=== PATIENT | female | born 1960 | race Caucasian/White ===

== ENCOUNTER 2018-12-20 16:47 | Emergency (ER) | payer OTHER ==
--- NOTE | 2018-12-20 17:42 | ER ---
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 Denies trauma or injury, reports seeing a massage therapist and chiropractor for pain management but nothing is helping. Transition of care: patient was not received from another setting of care. Onset of symptoms was December 20, 2018. Risk Assessment: Do you want to hurt yourself or someone else? Patient reports no desire to harm self or others. Initial Sepsis Screen: Does the patient meet any 2 criteria? No. Patient's initial sepsis screen is negative. Does the patient have a suspected source of infection? No. Patient's initial sepsis screen is negative. Care prior to arrival: None. 17:05 Method Of Arrival: Ambulatory sg 17:05 Acuity: NOE 4 sg Historical: - Allergies: 17:08 No Known Allergies; sg - PMHx: 17:08 Borderline Diabetes; Borderline Hypertension; sg - PSHx: 17:08 D/C; sg - Immunization history:: Adult Immunizations up to date. - Social history:: Smoking status: Patient/guardian denies using tobacco. - Ebola Screening: : Patient negative for fever greater than or equal to 101.5 degrees Fahrenheit, and additional compatible Ebola Virus Disease symptoms Patient denies exposure to infectious person Patient denies travel to an Ebola-affected area in the 21 days before illness onset No symptoms or risks identified at this time. Screenin:37 Abuse screen: Denies threats or abuse. Denies injuries from another. Nutritional aj screening: No deficits noted. Tuberculosis screening: No symptoms or risk factors identified. Fall Risk None identified. Assessment: 17:37 General: Appears in no apparent distress. comfortable, Behavior is calm, cooperative, aj appropriate for age. Pain: Complains of pain in coccyx, left lower back, left gluteus tarik and left gluteal fold. Neuro: Level of Consciousness is awake, alert, obeys commands, Oriented to person, place, time, situation, Appropriate for age. Respiratory: Airway is patent Trachea midline Respiratory effort is even, unlabored, Respiratory pattern is regular, symmetrical. Derm: Skin is intact, is healthy with good turgor, Skin is pink, warm \T\ dry. normal. Musculoskeletal: Reports pain in coccyx, left lower back, left gluteus tarik and left gluteal fold. Vital Signs: 17:06 Pulse 72; Resp 18; Temp 97.6; Pulse Ox 99% on R/A; Pain 6/10; sg 17:10 BP 146 / 64; em1 ED Course: 16:50 Patient arrived in ED. as 17:01 Keiry Fofana, RN is Primary Nurse. aj 17:06 Triage completed. sg 17:06 Arm band placed on. sg 17:37 Patient has correct armband on for positive identification. aj 17:37 No provider procedures requiring assistance completed. aj 17:40 Pranav Booth PA is PHCP. jr8 17:40 Adam Brock MD is Attending Physician. jr8 17:46 Patient did not have IV access during this emergency room visit. aj Administered Medications: No medications were administered Outcome: 17:41 Discharge ordered by . jr8 17:46 Discharged to home ambulatory. aj 17:46 Condition: good 17:46 Discharge instructions given to patient, Instructed on discharge instructions, follow up and referral plans. medication usage, Demonstrated understanding of instructions, follow-up care, medications, Prescriptions given X 3. 17:46 Patient left the ED. aj Signatures: Phill Mtz, RN Keiry Bains RN Mahnaz Chin Eric em1 Pranav Booth PA PA jr8
--- NOTE | 2018-12-20 17:42 | EDPHYS ---
Physician Documentation [facility] Name: Dixie Gardner Age: 58 yrs Sex: Female : 1960 Arrival Date: 12/20/2018 Time: 16:50 Bed 25 Private MD: ED Physician Adam Brock HPI: 12/20 17:42 This 58 yrs old Female presents to ER via Ambulatory with complaints of Back jr8 Pain, Thigh Pain. 17:42 The patient presents with pain that is acute. The symptoms are located in the low back. jr8 Onset: The symptoms/episode began/occurred acutely, 2 day(s) ago. The pain radiates to the left leg. Associated signs and symptoms: The patient has no apparent associated signs or symptoms. The problem was sustained when bending over, when lifting. Modifying factors: The patient symptoms are alleviated by nothing, the patient symptoms are aggravated by any movement. Severity of symptoms: At their worst the symptoms were moderate, in the emergency department the symptoms are unchanged. The patient has not experienced similar symptoms in the past. The patient has not recently seen a physician. Historical: - Allergies: 17:08 No Known Allergies; sg - PMHx: 17:08 Borderline Diabetes; Borderline Hypertension; sg - PSHx: 17:08 D/C; sg - Immunization history:: Adult Immunizations up to date. - Social history:: Smoking status: Patient/guardian denies using tobacco. - Ebola Screening: : Patient negative for fever greater than or equal to 101.5 degrees Fahrenheit, and additional compatible Ebola Virus Disease symptoms Patient denies exposure to infectious person Patient denies travel to an Ebola-affected area in the 21 days before illness onset No symptoms or risks identified at this time. ROS: 17:42 Eyes: Negative for injury, pain, redness, and discharge, ENT: Negative for injury, jr8 pain, and discharge, Neck: Negative for injury, pain, and swelling, Respiratory: Negative for shortness of breath, cough, wheezing, and pleuritic chest pain, Abdomen/GI: Negative for abdominal pain, nausea, vomiting, diarrhea, and constipation, MS/Extremity: Negative for injury and deformity, Skin: Negative for injury, rash, and discoloration, Neuro: Negative for headache, weakness, numbness, tingling, and seizure. 17:42 Back: Positive for pain at rest, pain with movement, radiated pain, of the left low back. Exam: 17:42 Eyes: Pupils equal round and reactive to light, extra-ocular motions intact. Lids and jr8 lashes normal. Conjunctiva and sclera are non-icteric and not injected. Cornea within normal limits. Periorbital areas with no swelling, redness, or edema. ENT: Nares patent. No nasal discharge, no septal abnormalities noted. Tympanic membranes are normal and external auditory canals are clear. Oropharynx with no redness, swelling, or masses, exudates, or evidence of obstruction, uvula midline. Mucous membranes moist. Neck: Trachea midline, no thyromegaly or masses palpated, and no cervical lymphadenopathy. Supple, full range of motion without nuchal rigidity, or vertebral point tenderness. No Meningismus. Cardiovascular: Regular rate and rhythm with a normal S1 and S2. No gallops, murmurs, or rubs. Normal PMI, no JVD. No pulse deficits. Respiratory: Lungs have equal breath sounds bilaterally, clear to auscultation and percussion. No rales, rhonchi or wheezes noted. No increased work of breathing, no retractions or nasal flaring. Abdomen/GI: Soft, non-tender, with normal bowel sounds. No distension or tympany. No guarding or rebound. No evidence of tenderness throughout. Skin: Warm, dry with normal turgor. Normal color with no rashes, no lesions, and no evidence of cellulitis. MS/ Extremity: Pulses equal, no cyanosis. Neurovascular intact. Full, normal range of motion. Neuro: Awake and alert, GCS 15, oriented to person, place, time, and situation. Cranial nerves II-XII grossly intact. Motor strength 5/5 in all extremities. Sensory grossly intact. Cerebellar exam normal. Normal gait. 17:42 Back: pain, that is moderate, of the left low back, ROM is painful, normal spinal alignment noted, CVA tenderness, is absent, vertebral tenderness, is not appreciated, muscle spasm, is appreciated in the left low back. Vital Signs: 17:06 Pulse 72; Resp 18; Temp 97.6; Pulse Ox 99% on R/A; Pain 6/10; sg 17:10 BP 146 / 64; em1 MDM: 17:40 Patient medically screened. jr8 17:40 Data reviewed: vital signs, nurses notes, and as a result, I will discharge patient. jr8 Data interpreted: Pulse oximetry: on room air is 99 %. Interpretation: normal. Counseling: I had a detailed discussion with the patient and/or guardian regarding: the historical points, exam findings, and any diagnostic results supporting the discharge/admit diagnosis, the need for outpatient follow up, a family practitioner, to return to the emergency department if symptoms worsen or persist or if there are any questions or concerns that arise at home. Administered Medications: No medications were administered Disposition: 12/21 09:42 Co-signature as Attending Physician, Adam Brock MD I agree with the assessment and de plan of care. Disposition: 12/20/18 17:41 Discharged to Home. Impression: Low back pain, Radiculopathy, lumbar region. - Condition is Stable. - Discharge Instructions: Back Pain, Adult, Musculoskeletal Pain, Heat Therapy. - Prescriptions for Mobic 7.5 mg Oral Tablet - take 1 tablet by ORAL route once daily take with food; 20 tablet. Prednisone 20 mg Oral Tablet - take 1 tablet by ORAL route once daily for 5 days; 5 tablet. Skelaxin 800 mg Oral Tablet - take 1 tablet by ORAL route every 8 hours As needed; 30 tablet. - Medication Reconciliation Form, Thank You Letter, Antibiotic Education, Prescription Opioid Use form. - Follow up: Private Physician; When: 1 week; Reason: Recheck today's complaints, Continuance of care, Re-evaluation by your physician. - Problem is new. - Symptoms have improved. Signatures: Phill Mtz RN RN sg Myers, Amanda, RN RN aj Roszak, Josh, PA PA jr8 Adam Brock MD MD de Corrections: (The following items were deleted from the chart) 12/20 17:46 17:41 12/20/2018 17:41 Discharged to Home. Impression: Low back pain; Radiculopathy, aj lumbar region. Condition is Stable. Forms are Medication Reconciliation Form, Thank You Letter, Antibiotic Education, Prescription Opioid Use. Follow up: Private Physician; When: 1 week; Reason: Recheck today's complaints, Continuance of care, Re-evaluation by your physician. Problem is new. Symptoms have improved. jr8
== END 2018-12-20 17:46 | disposition home or self-care (01) ==
LOC: ER 16:47
DX: M54.16 Radiculopathy, lumbar region (principal); R73.03 Prediabetes; R03.0 Elevated blood-pressure reading, without diagnosis of hypertension
CPT/HCPCS: 99282

== ENCOUNTER 2019-07-23 12:26 | Emergency (ER) | payer BC, OTHER ==
[2019-07-23] MEDS ORDERED: BUPIVACAINE 0.5% PF 10 ML VIAL ONE (13:12)
[2019-07-23] MEDS ORDERED: AMOX/K CLAV 875 MG TAB ONE (13:13)
--- NOTE | 2019-07-23 13:25 | ER ---
Nurse's Notes [facility] Name: Dixie Gardner Age: 59 yrs Sex: Female : 1960 Arrival Date: 07/23/2019 Time: 12:31 Bed 10 Private MD: Diagnosis: Cat Bite;Cellulitis of the Right 1st Phalanx Presentation: 07/23 12:45 Presenting complaint: Patient states: She was bit by her cat on Wednesday, now its aj1 swollen, hot to the touch and painful. Transition of care: patient was not received from another setting of care. Onset of symptoms was July 2019. Risk Assessment: Do you want to hurt yourself or someone else? Patient reports no desire to harm self or others. Initial Sepsis Screen: Does the patient meet any 2 criteria? No. Patient's initial sepsis screen is negative. Does the patient have a suspected source of infection? Yes: Skin breakdown/wound. Care prior to arrival: None. 12:45 Method Of Arrival: Ambulatory [facility] 12:45 Acuity: NOE 4 aj1 Triage Assessment: 12:47 Bite description: bite sustained to palmar aspect of distal phalanx of right thumb by a aj1 cat, animal information: vaccination(s) is current. General: Appears in no apparent distress. comfortable, Behavior is calm, cooperative, appropriate for age. Pain: Complains of pain in palmar aspect of distal phalanx of right thumb. Neuro: Level of Consciousness is awake, alert, obeys commands, Oriented to person, place, time, situation. Cardiovascular: Patient's skin is warm and dry. Respiratory: Airway is patent Respiratory effort is even, unlabored, Respiratory pattern is regular, symmetrical. Historical: - Allergies: 12:47 Cleocin; aj1 - Home Meds: 12:47 Hydrochlorothiazide Oral [Active]; Metformin Oral [Active]; "antidepressant" [Active]; aj1 - PMHx: 12:47 Borderline Diabetes; borderline hypertension; Rheumatic Fever; aj1 - Immunization history:: Flu vaccine is up to date. - Coronavirus screen:: The patient has NOT traveled to [place], [place], or [place] in the past 14 days. - Social history:: Smoking status: Patient/guardian denies using tobacco. - Ebola Screening: : Patient denies travel to an Ebola-affected area in the 21 days before illness onset. Vital Signs: 12:47 BP 143 / 74; Pulse 61; Resp 18; Temp 97.5; Pulse Ox 97% on R/A; Weight 99.79 kg (R); aj1 Height 5 ft. 3 in. (160.02 cm) (R); Pain 9/10; 12:47 Body Mass Index 38.97 (99.79 kg, 160.02 cm) [facility] ED Course: 12:31 Patient arrived in ED. mr 12:46 Triage completed. aj1 12:47 Arm band placed on Patient placed in an exam room. aj 12:53 John Becerra PA is PHCP. [facility] 12:53 Deon Harman MD is Attending Physician. [facility] 13:07 Bassem Blancas, RN is Primary Nurse. em 13:33 No provider procedures requiring assistance completed. Patient did not have IV access ss during this emergency room visit. Administered Medications: 13:12 Drug: Augmentin 875 mg Route: PO; em 13:32 Follow up: Response: No adverse reaction; Medication administered at discharge. ss 13:33 Not Given (Patient Refused): Marcaine (0.5 %) 10 ml 10 ml Infiltration once ss Outcome: 13:24 Discharge ordered by . [facility] 13:43 Discharged to home ambulatory. em 13:43 Condition: good 13:43 Discharge instructions given to patient, family, Instructed on discharge instructions, follow up and referral plans. medication usage, Demonstrated understanding of instructions, follow-up care, medications, Prescriptions given X 2. 13:43 Patient left the ED. em Signatures: Nereida Spence RN RN aj John Becerra PA PA Danielle Morales mr Bassem Blancas, RN RN em Joselin Tracey RN RN ss
--- NOTE | 2019-07-23 13:25 | EDPHYS ---
Physician Documentation [facility] Name: Dxiie Gardner Age: 59 yrs Sex: Female : 1960 Arrival Date: 07/23/2019 Time: 12:31 Bed 10 Private MD: ED Physician Deon Harman HPI: 07/23 13:19 This 59 yrs old Female presents to ER via Ambulatory with complaints of Cat jmm Bite, Infected finger. 13:19 by a cat. Onset: The symptoms/episode began/occurred acutely, 2 day(s) ago. Animal jmm information: Animal's vaccinations are up to date. Secondary to the bite the patient reports pain, swelling. Associated signs and symptoms: Pertinent positives: erythema at site, Pertinent negatives: fever. This is a 59 year old female with a hisory of htn that presents to the ED with complaints of right thumb pain with increased swelling and redness. Patient states her cat bit her thumb this past Wednesday. Denies fever or chills. . Historical: - Allergies: 12:47 Cleocin; aj1 - Home Meds: 12:47 Hydrochlorothiazide Oral [Active]; Metformin Oral [Active]; "antidepressant" [Active]; aj1 - PMHx: 12:47 Borderline Diabetes; borderline hypertension; Rheumatic Fever; aj1 - Immunization history:: Flu vaccine is up to date. - Coronavirus screen:: The patient has NOT traveled to [place], [place], or [place] in the past 14 days. - Social history:: Smoking status: Patient/guardian denies using tobacco. - Ebola Screening: : Patient denies travel to an Ebola-affected area in the 21 days before illness onset. ROS: 13:19 Constitutional: Negative for fever, chills, and weight loss, Cardiovascular: Negative jmm for chest pain, palpitations, and edema, Respiratory: Negative for shortness of breath, cough, wheezing, and pleuritic chest pain. 13:19 MS/extremity: Positive for erythema, swelling. 13:19 Skin: Positive for erythema. 13:19 All other systems are negative. Exam: 13:19 Constitutional: This is a well developed, well nourished patient who is awake, alert, jmm and in no acute distress. Head/Face: atraumatic. Eyes: EOMI, no conjunctival erythema appreciated ENT: Moist Mucus Membranes Neck: Trachea midline, Supple Chest/axilla: Normal chest wall appearance and motion. Cardiovascular: Regular rate and rhythm. No edema appreciated Respiratory: Normal respirations, no respiratory distress appreciated Abdomen/GI: Non distended, soft Back: Normal ROM 13:19 Musculoskeletal/extremity: FROM noted to the right thumb. 13:19 Skin: erythema along with punctures noted to the distal thumb, no purulent drainage appreciated, area is ttp. 13:19 Neuro: Orientation: is normal, Mentation: is normal, Memory: is normal. 13:19 Psych: Behavior/mood is pleasant, cooperative. Vital Signs: 12:47 BP 143 / 74; Pulse 61; Resp 18; Temp 97.5; Pulse Ox 97% on R/A; Weight 99.79 kg (R); aj1 Height 5 ft. 3 in. (160.02 cm) (R); Pain 9/10; 12:47 Body Mass Index 38.97 (99.79 kg, 160.02 cm) aj1 MDM: 12:59 Patient medically screened. [facility] 13:22 Data reviewed: vital signs, nurses notes. Counseling: I had a detailed discussion with ania the patient and/or guardian regarding: the historical points, exam findings, and any diagnostic results supporting the discharge/admit diagnosis, the need for outpatient follow up, to return to the emergency department if symptoms worsen or persist or if there are any questions or concerns that arise at home. ED course: Cellulitis is localized to the distal phalanx, patient will be initiated on oral antibiotics and given f/u with hand surgery. Patient is otherwise given strict return precautions. Patient understood and agrees with the plan of care. . Administered Medications: 13:12 Drug: Augmentin 875 mg Route: PO; em 13:32 Follow up: Response: No adverse reaction; Medication administered at discharge. ss 13:33 Not Given (Patient Refused): Marcaine (0.5 %) 10 ml 10 ml Infiltration once ss Disposition: 07/24 07:40 Co-signature as Attending Physician, Deon Harman MD I agree with the assessment and [facility] plan of care. Disposition: 07/23/19 13:24 Discharged to Home. Impression: Cat Bite, Cellulitis of the Right 1st Phalanx. - Condition is Stable. - Discharge Instructions: Cellulitis, Adult, Animal Bite. - Prescriptions for Augmentin 875- 125 mg Oral Tablet - take 1 tablet by ORAL route every 12 hours for 10 days; 20 tablet. Ultracet 37.5- 325 mg Oral Tablet - take 1 tablet by ORAL route every 6 hours - for up to 5 days; do not exceed 8 tablets per day.; 12 tablet. - Medication Reconciliation Form, Thank You Letter, Antibiotic Education, Prescription Opioid Use form. - Follow up: Private Physician; When: 2 - 3 days; Reason: Recheck today's complaints, Continuance of care, Re-evaluation by your physician. Signatures: Nereida Spence RN RN aj1 Deon Harman MD MD cha Mickail, Joel, PA PA Bassem Park RN RN em Smirch, Shelby RN ss Corrections: (The following items were deleted from the chart) 07/23 13:43 13:24 07/23/2019 13:24 Discharged to Home. Impression: Cat Bite; Cellulitis of the em Right 1st Phalanx. Condition is Stable. Forms are Medication Reconciliation Form, Thank You Letter, Antibiotic Education, Prescription Opioid Use. Follow up: Private Physician; When: 2 - 3 days; Reason: Recheck today's complaints, Continuance of care, Re-evaluation by your physician. ania
[2019-07-23 14:10] VITALS: BP 143/74; TEMP 97.5; O2SAT 97
== END 2019-07-23 13:43 | disposition home or self-care (01) ==
LOC: ER 12:26
DX: L03.011 Cellulitis of right finger (principal); R73.03 Prediabetes; R03.0 Elevated blood-pressure reading, without diagnosis of hypertension; W55.01XA Bitten by cat, initial encounter; Y93.9 Activity, unspecified; Y92.9 Unspecified place or not applicable; I10 Essential (primary) hypertension; Z88.1 Allergy status to other antibiotic agents
CPT/HCPCS: 99283

== ENCOUNTER 2019-08-23 20:30 | Emergency (ER) | payer OTHER, BC ==
[2019-08-23] MEDS ORDERED: KETOROLAC 30 MG/ML INJ ONE (20:59)
--- NOTE | 2019-08-23 21:42 | RAD REPORT ---
EXAM DESCRIPTION: RAD - Wrist Right 3 View - 08/23/2019 9:06 pm CLINICAL HISTORY: Right wrist pain status post injury FINDINGS: No fracture or dislocation is seen. If the patient continues to have symptoms to suggest a n occult fracture then a followup plain film series in 7 days would be recommended.
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
[2019-08-23 23:04] VITALS: TEMP 98.2
[2019-08-23 23:06] VITALS: BP 147/59; O2SAT 97
== END 2019-08-23 22:56 | disposition home or self-care (01) ==
LOC: ER 20:30
DX: S40.022A Contusion of left upper arm, initial encounter (principal); S40.021A Contusion of right upper arm, initial encounter; V43.52XA Car driver injured in collision with other type car in traffic accident, initial encounter; Y93.89 Activity, other specified; Y92.410 Unspecified street and highway as the place of occurrence of the external cause; E11.9 Type 2 diabetes mellitus without complications; I10 Essential (primary) hypertension
CPT/HCPCS: 96372; 99284

== ENCOUNTER 2021-03-21 12:14 | Emergency (ER) | payer BC, OTHER ==
--- NOTE | 2021-03-21 14:37 | RAD REPORT ---
EXAM DESCRIPTION: RAD - Knee Left 3 View - 03/21/2021 2:23 pm CLINICAL HISTORY: PAIN COMPARISON: No comparisons FINDINGS: Mild osteoarthritis involves the medial joint compartment. No fracture or dislocation seen . No joint effusion evident.
--- NOTE | 2021-03-21 14:38 | RAD REPORT ---
EXAM DESCRIPTION: RAD - Ankle Left 3 View - 03/21/2021 2:23 pm CLINICAL HISTORY: PAIN COMPARISON: No comparisons FINDINGS: Mild arthritic changes involve the left ankle. No acute fracture or dislocation seen.
--- NOTE | 2021-03-21 14:40 | RAD REPORT ---
EXAM DESCRIPTION: RAD - Femur Left - 03/21/2021 2:23 pm CLINICAL HISTORY: PAIN COMPARISON: No comparisons FINDINGS: No acute fracture or dislocation is seen. Nonspecific moderate periosteal thickening along the medial femoral cortex is present. This is of unclear etiology and significance and may be chroni c. Followup nuclear medicine bone scan or MRI of the left femur would be recommended on a nonemergent basis.
--- NOTE | 2021-03-21 14:41 | RAD REPORT ---
EXAM DESCRIPTION: RAD - Wrist Left 3 View - 03/21/2021 2:23 pm CLINICAL HISTORY: PAIN Pain COMPARISON: No comparisons FINDINGS: No fracture or dislocation seen. No foreign body or other soft tissue abnormality. IMPRESSION: Negative examination.
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
--- NOTE | 2021-03-21 14:46 | ER ---
Nurse's Notes [facility] Name: Dixie Gardner Age: 60 yrs Sex: Female : 1960 Arrival Date: 03/21/2021 Time: 12:14 Bed 12 Private MD: Diagnosis: Sprain of unspecified part of left wrist and hand;Contusion of left knee;Sprain of unspecified ligament of left ankle;Contusion of lower back and pelvis Presentation: 03/21 12:15 Chief complaint: Patient states: Pt was trying to avoid falling over student and vg1 tripped and fell from standing position; stated fell onto buttocks and caught self with Left hand. Pt c/o pain in Left leg and Left wrist, left index finger and left thumb. Pt denies hitting head. Coronavirus screen: Vaccine status: Patient reports receiving the 2nd dose of the covid vaccine. Client denies travel out of the [place] in the last 14 days. Ebola Screen: Patient negative for fever greater than or equal to 101.5 degrees Fahrenheit, and additional compatible Ebola Virus Disease symptoms. 12:15 Method Of Arrival: EMS: [facility] vg1 12:15 Initial Sepsis Screen: Does the patient meet any 2 criteria? No. Patient's initial vg1 sepsis screen is negative. Does the patient have a suspected source of infection? No. Patient's initial sepsis screen is negative. Risk Assessment: Do you want to hurt yourself or someone else? Patient reports no desire to harm self or others. Onset of symptoms was March 21, 2021. 12:15 Acuity: NOE 3 vg1 12:35 Care prior to arrival: None. Mechanism of Injury: Fall from standing position. Trauma vg1 event details: Injury occurred in the [facility]. Triage Assessment: 12:15 General: Appears in no apparent distress. uncomfortable, Behavior is calm, cooperative. vg1 Pain: Complains of pain in left wrist, left index finger, left thumb Pain currently is 8 out of 10 on a pain scale. EENT: No signs and/or symptoms were reported regarding the EENT system. Neuro: Level of Consciousness is awake, alert, obeys commands, Oriented to person, place, time, situation. Cardiovascular: Patient's skin is warm and dry. Respiratory: Airway is patent Respiratory effort is even, unlabored. GI: No signs and/or symptoms were reported involving the gastrointestinal system. : No signs and/or symptoms were reported regarding the genitourinary system. Derm: Skin is intact, is healthy with good turgor. Musculoskeletal: Circulation, motion, and sensation intact. Range of motion: limited in left wrist Swelling present in left wrist. Historical: - Allergies: 12:30 Cleocin; vg1 12:30 Anthing with [place]; vg1 - Home Meds: 12:30 "antidepressant" [Active]; Hydrochlorothiazide Oral [Active]; vg1 - PMHx: 12:30 Borderline Diabetes; borderline hypertension; RHEUMATIC FEVER; Depressive disorder; vg1 - Immunization history:: Adult Immunizations up to date, Client reports receiving the 2nd dose of the Covid vaccine. - Social history:: Smoking status: Patient denies any tobacco usage or history of. - Family history:: not pertinent. - Hospitalizations: : No recent hospitalization is reported. Screenin:34 Abuse screen: Denies threats or abuse. Nutritional screening: No deficits noted. vg1 Tuberculosis screening: No symptoms or risk factors identified. Fall Risk Fall in past 12 months (25 points). No secondary diagnosis (0 pts). No IV (0 pts). Ambulatory Aid- None/Bed Rest/Nurse Assist (0 pts). Gait- Normal/Bed Rest/Wheelchair (0 pts) Mental Status- Oriented to own ability (0 pts). Total [place] Fall Scale indicates No Risk (0-24 pts). Primary Survey: 12:34 NO uncontrolled hemorrhage observed. A: The patient is alert. Breathing/Chest: vg1 Respiratory pattern: regular, Respiratory effort: spontaneous, Breath sounds: clear, Chest inspection: symmetrical rise and fall of the chest. Circulation: Pulses: palpable right radial artery and left radial artery. Disability Alert. 12:35 Exposure/Environment: A warming method has been applied: A warm blanket has been vg1 provided to the patient. 13:23 Reassessment Airway Airway Patent Breathing/Chest Respiratory pattern Regular vg1 Respiratory effort Spontaneous Breath sounds Clear Chest inspection Symmetrical Circulation Pulses Palpable Disability Alert. Secondary Survey: 12:34 HEENT: No deficits noted. Gastrointestinal: No deficits noted. : No deficits noted. vg1 Musculoskeletal: Circulation, motion, and sensation intact. Swelling present in left wrist. Assessment: 12:33 Reassessment: SEE TRIAGE. vg1 13:25 Reassessment: Patient appears in no apparent distress at this time. No changes from vg1 previously documented assessment. Patient and/or family updated on plan of care and expected duration. Pain level reassessed. Patient is alert, oriented x 3, equal unlabored respirations, skin warm/dry/pink. 14:23 Reassessment: Patient appears in no apparent distress at this time. Patient and/or vg1 family updated on plan of care and expected duration. Pain level reassessed. Patient is alert, oriented x 3, equal unlabored respirations, skin warm/dry/pink. States is able to open and closed Left hand fully. Patient states feeling better. Vital Signs: 12:15 BP 176 / 78; Pulse 55; Resp 16; Temp 98.6(O); Pulse Ox 100% ; Weight 83.91 kg; Height 5 vg1 ft. 4 in. (162.56 cm); Pain 8/10; 13:15 BP 180 / 77; Pulse 56; Resp 16; Pulse Ox 100% ; vg1 14:15 BP 168 / 76; Pulse 55; Resp 16; Pulse Ox 100% ; vg1 12:15 Body Mass Index 31.75 (83.91 kg, 162.56 cm) vg1 [place] Coma Score: 12:35 Eye Response: spontaneous(4). Verbal Response: oriented(5). Motor Response: obeys vg1 commands(6). Total: 15. Trauma Score (Adult): 12:35 Eye Response: spontaneous(1); Verbal Response: oriented(1); Motor Response: obeys vg1 commands(2); Systolic BP: > 89 mm Hg(4); Respiratory Rate: 10 to 29 per min(4); [place] Score: 15; Trauma Score: 12 ED Course: 12:14 Patient arrived in ED. am2 12:16 Sony Anderson MD is Attending Physician. rn 12:28 Rashmi Tamez RN is Primary Nurse. vg1 12:30 Triage completed. vg1 12:34 Patient has correct armband on for positive identification. Bed in low position. Call vg1 light in reach. Side rails up X2. Adult w/ patient. Patient maintains SpO2 saturation greater than 95% on room air. 12:34 No provider procedures requiring assistance completed. Patient did not have IV access vg1 during this emergency room visit. 12:36 Arm band placed on. vg1 12:36 Thermoregulation: warm blanket given to patient. vg1 14:23 XRAY Pelvis In Process Unspecified. EDMS 14:23 XRAY Femur LEFT In Process Unspecified. EDMS 14:23 XRAY Knee LEFT 3 view In Process Unspecified. EDMS 14:23 XRAY Ankle LEFT 3 view In Process Unspecified. EDMS 14:23 XRAY Wrist LEFT 3 view In Process Unspecified. EDMS Administered Medications: No medications were administered Outcome: 14:45 Discharge ordered by . rn 14:54 Discharged to home via wheelchair, with family. vg1 14:54 Condition: stable 14:54 Discharge instructions given to patient, Instructed on discharge instructions, follow up and referral plans. Demonstrated understanding of instructions, follow-up care. 14:54 Patient left the ED. vg1 Signatures: Dispatcher [employer] EDMS Sony Anderson MD MD rn Moreno, Amanda am2 Garcia, Victoria RN RN vg1 Corrections: (The following items were deleted from the chart) 13:23 13:23 BP 180 / 77; Pulse 56bpm; Resp 16bpm; Pulse Ox 100%; vg1 vg1 14:39 14:23 Reassessment: Patient appears in no apparent distress at this time. Patient vg1 and/or family updated on plan of care and expected duration. Pain level reassessed. Patient is alert, oriented x 3, equal unlabored respirations, skin warm/dry/pink. vg1
[2021-03-21 15:03] VITALS: TEMP 98.6; O2SAT 100
[2021-03-21 15:06] VITALS: BP 168/76
== END 2021-03-21 14:54 | disposition home or self-care (01) ==
LOC: ER 12:14
DX: S63.92XA Sprain of unspecified part of left wrist and hand, initial encounter (principal); S93.402A Sprain of unspecified ligament of left ankle, initial encounter; S80.02XA Contusion of left knee, initial encounter; S30.0XXA Contusion of lower back and pelvis, initial encounter; W03.XXXA Other fall on same level due to collision with another person, initial encounter; Y93.01 Activity, walking, marching and hiking; Z88.8 Allergy status to other drugs, medicaments and biological substances; Z91.018 Allergy to other foods; I10 Essential (primary) hypertension; F32.A Depression, unspecified
CPT/HCPCS: 72170; 99284

== ENCOUNTER 2021-12-07 17:57 | Emergency (ER) | payer BC ==
[2021-12-07] MEDS ORDERED: IBUPROFEN 400 MG TAB ONE (18:33)
--- NOTE | 2021-12-07 19:42 | RAD REPORT ---
EXAM DESCRIPTION: RAD - Shoulder Left 2 View - 12/07/2021 7:27 pm CLINICAL HISTORY: PAIN COMPARISON: <Comparisons> FINDINGS/IMPRESSION: No acute fracture. No malalignment. No significant focal degenerative changes.
--- NOTE | 2021-12-07 19:43 | RAD REPORT ---
EXAM DESCRIPTION: RAD - Hand Left 3 View - 12/07/2021 7:27 pm CLINICAL HISTORY: PAIN COMPARISON: No comparisonsNo comparisons FINDINGS/IMPRESSION: No acute fracture. No malalignment. No significant focal degenerative changes.
--- NOTE | 2021-12-07 19:44 | RAD REPORT ---
EXAM DESCRIPTION: RAD - Knee Left 3 View - 12/07/2021 7:26 pm CLINICAL HISTORY: PAIN COMPARISON: Knee Left 3 View dated 03/21/2021 FINDINGS: No acute fracture. Tricompartmental degenerative changes which are mild in the medial and lateral compartments and moderate in the patellofemoral compartment. IMPRESSION: No acute osseous abnormality involving the left knee.
--- NOTE | 2021-12-07 19:55 | EDPHYS ---
Physician Documentation [facility] Name: Dixie Gardner Age: 61 yrs Sex: Female : 1960 Arrival Date: 12/07/2021 Time: 18:00 Bed 7 Private MD: ED Physician Sony Anderson HPI: 12/07 18:22 This 61 yrs old Female presents to ER via Ambulatory with complaints of Knee Injury. en 18:22 61 yo F presents to ED with left knee, left hand, and left shoulder pain after 2ft fall en off of stage 4d ago. She is able to weight bear but noticed persistent swelling and pain over patella with small amount of redness around abrasion on knee. Also with pain to left hand over thenar eminence and left shoulder. No LOC. Didn't head. . Historical: - Allergies: 18:11 Anthing with [place]; ll1 18:11 Cleocin; ll1 - PMHx: 18:11 Borderline Diabetes; borderline hypertension; depressive disorder; RHEUMATIC FEVER; ll1 cystitis; - PSHx: 18:11 section; tooth extraction; ll1 - Immunization history:: Client reports receiving the 2nd dose of the Covid vaccine. - Social history:: Smoking status: Patient denies any tobacco usage or history of. ROS: 18:22 Constitutional: Negative for fever, chills, and weight loss. en 18:22 Neck: Negative for pain with movement, pain at rest. 18:22 Cardiovascular: Negative for chest pain. 18:22 Respiratory: Negative for cough, shortness of breath. 18:22 Abdomen/GI: Negative for nausea, vomiting, and diarrhea. 18:22 MS/extremity: Positive for left knee, left shoulder, left hand pain. 18:22 Skin: Negative for 18:22 Skin: Positive for abrasion over left knee. 18:22 All other systems are negative. Exam: 18:22 Constitutional: This is a well developed, well nourished patient who is awake, alert, en and in no acute distress. 18:22 Constitutional: The patient appears in no acute distress, alert. 18:22 Head/face: Exam is negative for obvious evidence of injury or deformity. 18:22 Eyes: Conjunctiva: normal, no exudate, no injection. 18:22 ENT: Mouth: Lips: moist, dry, Posterior pharynx: Airway: patent. 18:22 Neck: ROM/movement: pain, limited range of motion, is not appreciated. 18:22 Cardiovascular: Rate: normal, Rhythm: regular, Pulses: no pulse deficits are appreciated, Heart sounds: normal, no murmur, no rub, no gallop. 18:22 Respiratory: Exam negative for the patient does not display signs of respiratory distress, Respirations: normal, Breath sounds: are clear throughout, no rales, rhonchi, no stridor, no wheezing. 18:22 Abdomen/GI: Bowel sounds: normal, Palpation: abdomen is soft and non-tender. 18:22 Back: ROM is normal, vertebral tenderness, is not appreciated. 18:22 Musculoskeletal/extremity: DROM left knee with suprapatellar effusion, no patellar apprehension, Ligamentously stable, calf supple, 2+ DP/PT pulses. Ambulates with a limp. FROM left shoulder with discomfort in extreme abduction. Negative cross body. Mild TTP over lateral shoulder. Left hand with mild TTP over 1st webs space, no snuff box TTP, bruising, or swelling. No collateral ligament TTP over thumb. NVI. Vital Signs: 18:13 BP 186 / 73; Pulse 60; Resp 17; Temp 97.5; Pulse Ox 99% ; Weight 95.25 kg; Height 5 ft. ll1 4 in. (162.56 cm); Pain 4/10; 19:40 BP 176 / 72; Pulse 51; Resp 18 S; Pulse Ox 98% on R/A; as6 18:13 Body Mass Index 36.05 (95.25 kg, 162.56 cm) ll1 MDM: 18:22 Differential diagnosis: fracture, sprain, strain. Data reviewed: vital signs, nurses en notes, radiologic studies. 19:20 ED course: Signed out to me by SAUL Guzman, at shift change, pending xrays, rn does not expect fracture, wound not infected, plan is to dc home if neg plain films.. 19:27 Patient medically screened. rn 19:53 Differential diagnosis: knee contusion, shoulder contusion, fracture, sprain. rn Counseling: I had a detailed discussion with the patient and/or guardian regarding: the historical points, exam findings, and any diagnostic results supporting the discharge/admit diagnosis, radiology results, the need for outpatient follow up, to return to the emergency department if symptoms worsen or persist or if there are any questions or concerns that arise at home. Response to treatment: the patient's symptoms have mildly improved after treatment, and as a result, I will discharge patient. Special discussion: I discussed with the patient/guardian in detail that at this point there is no indication for admission to the hospital. It is understood, however, that if the symptoms persist or worsen the patient needs to return immediately for re-evaluation. 12/07 18: Order name: Knee Left 3 View XRAY; Complete Time: 19:52 en 12/07 18: Order name: Hand Left 3 View XRAY; Complete Time: 19:52 en 12/07 18: Order name: Shoulder Left (2 View) XRAY; Complete Time: :52 en Administered Medications: 18:27 Drug: Ibuprofen 800 mg Route: PO; ll1 19:29 Follow up: Response: No adverse reaction as6 Disposition: 21:35 Co-signature as Attending Physician, Sony Anderson MD. rn Disposition Summary: 12/07/21 19:54 Discharge Ordered Location: Home rn Problem: new rn Symptoms: have improved rn Condition: Stable rn Diagnosis - Contusion of left knee rn - Contusion of left shoulder rn Followup: rn - With: Private Physician - When: As needed - Reason: Recheck today's complaints, Re-evaluation by your physician Discharge Instructions: - Discharge Summary Sheet rn - Contusion rn - Shoulder Sprain rn Forms: - Medication Reconciliation Form rn - Thank You Letter rn - Antibiotic news department intern - Prescription Opioid Use rn Signatures: Dispatcher [employer] EDSony Lawson MD MD rn Lewis, Lynsay, RN RN ll1 Jacque Lyon PA PA en Slawson, Ashby RN as6
--- NOTE | 2021-12-07 19:55 | ER ---
Nurse's Notes [facility] Name: Dixie Gardner Age: 61 yrs Sex: Female : 1960 Arrival Date: 12/07/2021 Time: 18:00 Bed 7 Private MD: Diagnosis: Contusion of left knee;Contusion of left shoulder Presentation: 12/07 18:13 Chief complaint: Patient states: Trip on stage Wednesday and fell off stage. L knee pain ll1 with laceration. Laceration is now red, swollen, and tender. L thumb is slightly swollen. L shoulder slightly sore. No head injury or LOC. No blood thinners. Coronavirus screen: Vaccine status: Patient reports receiving the 2nd dose of the covid vaccine. Client denies travel out of the [place] in the last 14 days. At this time, the client does not indicate any symptoms associated with coronavirus-19. Ebola Screen: Patient denies travel to an Ebola-affected area in the 21 days before illness onset. Initial Sepsis Screen: Does the patient meet any 2 criteria? No. Patient's initial sepsis screen is negative. Does the patient have a suspected source of infection? Yes: Skin breakdown/wound. Risk Assessment: Do you want to hurt yourself or someone else? Patient reports no desire to harm self or others. Onset of symptoms was December 01, 2021. 18:13 Method Of Arrival: Ambulatory ll1 18:13 Acuity: NOE 3 ll1 Triage Assessment: 18:12 General: Appears uncomfortable, Behavior is calm, cooperative, appropriate for age. ll1 Pain: Complains of pain in L knee Pain currently is 4 out of 10 on a pain scale. Quality of pain is described as aching, throbbing, Pain began Wednesday Aggravated by increased activity, weight bearing. Neuro: No deficits noted. Cardiovascular: No deficits noted. Derm: Reports laceration to L knee that is now red and swollen. Musculoskeletal: Reports pain in L knee. Injury Description: Bruise Laceration. Historical: - Allergies: 18:11 Anthing with [place]; ll1 18:11 Cleocin; ll1 - PMHx: 18:11 Borderline Diabetes; borderline hypertension; depressive disorder; RHEUMATIC FEVER; ll1 cystitis; - PSHx: 18:11 section; tooth extraction; ll1 - Immunization history:: Client reports receiving the 2nd dose of the Covid vaccine. - Social history:: Smoking status: Patient denies any tobacco usage or history of. Screenin:41 Abuse screen: Denies threats or abuse. Denies injuries from another. Nutritional as6 screening: No deficits noted. Tuberculosis screening: No symptoms or risk factors identified. Fall Risk Fall in past 12 months (25 points). Total Mullen Fall Scale indicates Low Risk Score (25-44 pts). Fall prevention measures have been instituted. Side Rails Up X 2. Assessment: 19:41 Reassessment: Patient appears in no apparent distress at this time. Patient and/or as6 family updated on plan of care and expected duration. Pain level reassessed. Patient is alert, oriented x 3, equal unlabored respirations, skin warm/dry/pink. Vital Signs: 18:13 BP 186 / 73; Pulse 60; Resp 17; Temp 97.5; Pulse Ox 99% ; Weight 95.25 kg; Height 5 ft. ll1 4 in. (162.56 cm); Pain 4/10; 19:40 BP 176 / 72; Pulse 51; Resp 18 S; Pulse Ox 98% on R/A; as6 18:13 Body Mass Index 36.05 (95.25 kg, 162.56 cm) ll1 ED Course: 18:00 Patient arrived in ED. mr 18:11 Arm band placed on. ll1 18:16 Triage completed. ll1 18:17 Jacque Lyon PA is PHCP. en 18:17 Libia Peterson MD is Attending Physician. en 19:20 Attending Physician role handed off by Libia Peterson MD rn 19:20 Sony Anderson MD is Attending Physician. rn 19:28 Knee Left 3 View XRAY In Process Unspecified. EDMS 19:28 Hand Left 3 View XRAY In Process Unspecified. EDMS 19:28 Shoulder Left (2 View) XRAY In Process Unspecified. EDMS 19:28 Raffi Walls, SHANIKA is Primary Nurse. as6 19:41 Bed in low position. Call light in reach. Side rails up X2. Pulse ox on. NIBP on. as6 Pillow given. 20:18 No provider procedures requiring assistance completed. Patient did not have IV access as6 during this emergency room visit. Administered Medications: 18:27 Drug: Ibuprofen 800 mg Route: PO; ll1 19:29 Follow up: Response: No adverse reaction as6 Medication: 19:41 VIS not applicable for this client. as6 Outcome: 19:54 Discharge ordered by . rn 20:18 Discharged to home ambulatory. as6 20:18 Condition: stable 20:18 Discharge instructions given to patient, Instructed on discharge instructions, follow up and referral plans. Demonstrated understanding of instructions, follow-up care. 20:19 Patient left the ED. as6 Signatures: Dispatcher [employer] JOSELO JackyDanielle MonicaSony MD MD rn Lewis, Lynsay, RN RN ll1 Raffi Walls RN RN as6 Jacque Lyon PA PA en
[2021-12-07 20:24] VITALS: TEMP 97.5
[2021-12-07 20:26] VITALS: BP 176/72; O2SAT 98
== END 2021-12-07 20:19 | disposition home or self-care (01) ==
LOC: ER 17:57
DX: S80.02XA Contusion of left knee, initial encounter (principal); S40.012A Contusion of left shoulder, initial encounter; Z88.8 Allergy status to other drugs, medicaments and biological substances; Z91.018 Allergy to other foods